=== PATIENT | female | born 1970 ===

== ENCOUNTER 2018-04-21 13:19 | Outpatient (CLI) | payer OTHER | END 2018-04-21 13:20 | disposition home or self-care (01) | LOC: C.USIC 13:19 | DX: R92.2 Inconclusive mammogram (principal); Z12.31 Encounter for screening mammogram for malignant neoplasm of breast; R10.32 Left lower quadrant pain ==

== ENCOUNTER 2018-07-29 15:45 | Outpatient (CLI) | payer OTHER | END 2018-07-29 15:46 | disposition home or self-care (01) | LOC: C.LAB 15:45 | DX: N30.01 Acute cystitis with hematuria (principal) ==

== ENCOUNTER 2018-08-06 07:29 | Outpatient (CLI) | payer OTHER | END 2018-08-06 07:30 | disposition home or self-care (01) | LOC: C.CTH 07:29 | DX: R31.9 Hematuria, unspecified (principal) ==